=== PATIENT | male | born 1950 | race Caucasian/White ===

== ENCOUNTER 2024-09-29 15:40 | Outpatient (CLI) | payer MEDICARE, MEDICAID ==
--- NOTE | 2024-09-29 18:29 | RADIOLOGY REPORT ---
Procedure: US US NON VASCULAR 09/29/2024 04:14 PM Indication: ENLARGED LYMPH NODES Comparison: None Technique: Sonogram of the area of clinical concern left groin was obtained utilizing grayscale and c olor techniques. FINDINGS: A 3.1 x 1.8 x 1.5 cm enlarged but morphologically benign lymph node noted in the left groin with preserved fatty hilum. IMPRESSION: Morphologically benign enlarged left groin lymph node likely reactive in nature. Recommend clinical and biochemical correlation and follow-up by physical exam or ultrasound to ensure regression and kari ignity.
== END 2024-09-29 23:59 | disposition home or self-care (01) ==
LOC: RAD 15:40
PROVIDERS: ATTEND Student in an Organized Health Care Education/Training Program
DX: R59.9 Enlarged lymph nodes, unspecified (principal)
CPT/HCPCS: 76881

== ENCOUNTER 2025-05-04 15:57 | Outpatient (CLI) | payer MEDICARE, MEDICAID ==
--- NOTE | 2025-05-04 16:48 | RADIOLOGY REPORT ---
CT brain without contrast CLINICAL INDICATION: TRAUMATIC INJURY OF HEAD FINDINGS: The study was performed in a multidetector scanner. This study performed taking axial images from the skull base up to the vertex. Both brain and bone windows are photographed. Dose lowering techniques have been used including automated exposure control and adjustment of mA and/or KV according to patient size. Normal and symmetrical shape and density of brain parenchyma above and below the tentorium is seen. There is no mass, midline shift or hydrocephalus. No intra/extra-axial collections demonstrated. There is no intracranial hemorrhage. The calvarium is intact. IMPRESSION: 1. Mild cortical atrophy. No acute intracranial pathology. Computed Tomographic Radiation Dosimetry Report: Total CTDI vol = 64 mGy Total DLP = 1267 mGy-cm All CT scans at this medical facility are performed using dose modulation techniques as appropriate to a performed exam including the following: Automated exposure control was utilized; adjustment of the MA and/or KvP according to patient size; and use of iterative reconstruction technique.
== END 2025-05-04 23:59 | disposition home or self-care (01) ==
LOC: RAD 15:57
DX: S09.90XA Unspecified injury of head, initial encounter (principal); G31.9 Degenerative disease of nervous system, unspecified; X58.XXXA Exposure to other specified factors, initial encounter; Y93.89 Activity, other specified; Y92.89 Other specified places as the place of occurrence of the external cause; Y99.8 Other external cause status
CPT/HCPCS: 70450